=== PATIENT | female | born 1960 | race Caucasian/White ===

== ENCOUNTER 2017-02-26 15:49 | Emergency (ER) | payer OTHER ==
[~2017-02-26] VITALS: Ht 182.9 cm; Wt 117.2 kg
[~2017-02-26 15:49] MED LIST: ABL/5 PO; CLON1TAB3 PO; ERGO1CAP35 PO; PRAV20TA PO; VENL150C56 PO
[2017-02-26 15:59] VITALS: TEMP 36.7; Ht 182.9 cm; Wt 117.2 kg
--- NOTE | 2017-02-26 16:48 | EMERGENCY ROOM VISIT NOTE ---
History Report prepared by Gita: Linwood Leal Under the Supervision of: Prasanth FernándezO. First contact with patient: 16:35 Chief Complaint: FLANK PAIN Stated Complaint: LF SIDE PAIN History of Present Illness The patient is a 56 year old female who presents to the Emergency Room with complaints of worsening intermittent sharp left sided pain for the past couple of weeks. The patient states that the pain is worsened while sitting down. The patient additionally states that she is having some diarrhea today, though she states that she ate some sugar free fudge. She states that she does not have a history of kidney stones, and she states that she was recently riding a tractor. The patient denies any other back problems, and she denies any recent falls or injuries. She states that she drinks 2 gallons of water, and she also drinks iced tea and coffee. She states that her urine was dark this morning, though it was clearer later. The patient states that she takes clonazepam for her bipolar disorder, and she has recently been changing her medications. Pt denies headache, change in vision, fevers, chest pain, shortness of breath, nausea, vomiting, pain with urination, and melena. Source of History: patient Onset: a couple of weeks ago Position: other (left flank) Quality: sharp Timing: intermittent Modifying Factors (Worsening): other (sitting down) Associated Symptoms: + diarrhea Review of Systems See HPI for pertinent positives & negatives. A total of 10 systems reviewed and were otherwise negative. Past Medical & Surgical Medical Problems: (1) skin problems Surgical Problems: (1) Hx of appendectomy Family History Diabetes mellitus FHx: cancer Social History Smoking Status: Never Smoker Alcohol Use: none Drug Use: none Marital Status: Housing Status: lives with family Occupation Status: disabled Current/Historical Medications Scheduled Aripiprazole (Abilify), 15 MG PO DAILY Clonazepam (Klonopin), 0.5 MG PO BID Ergocalciferol (Vitamin D 00975 Unit), 50,000 UNIT PO WK Modafinil (Provigil), 200 MG PO DAILY Pravastatin (Pravachol ), 20 MG PO DAILY Venlafaxine Hcl (Effexor Extended Rel), 150 MG PO DAILY Allergies Coded Allergies: No Known Allergies (Verified , 08/17/12) Physical Exam Vital Signs Date Time Temp Pulse Resp B/P (MAP) Pulse Ox O2 Delivery O2 Flow Rate FiO2 02/26/17 19:17 80 20 144/86 97 02/26/17 17:56 80 20 144/86 97 Room Air 02/26/17 15:59 36.7 74 18 135/76 97 Room Air Physical Exam GENERAL: alert, well appearing, well nourished, no distress, non-toxic EYE EXAM: normal conjunctiva, PERRL and EOM's grossly intact OROPHARYNX: no exudate, no erythema, lips, buccal mucosa, and tongue normal and mucous membranes are moist NECK: supple, no nuchal rigidity, no adenopathy, non-tender LUNGS: Clear to auscultation. Normal chest wall mechanics HEART: no murmurs, S1 normal and S2 normal ABDOMEN: abdomen soft, non-tender, normo-active bowel sounds, no masses, no rebound or guarding. BACK: Back is symmetrical on inspection and there is no deformity, no midline tenderness, no CVA tenderness. SKIN: no rashes and no bruising UPPER EXTREMITIES: upper extremities are grossly normal. LOWER EXTREMITIES: No pitting edema. NEURO EXAM: Normal sensorium, cranial nerves II-XII grossly intact, normal speech, no gross weakness of arms, no gross weakness of legs. Gross sensation intact. Medical Decision & Procedures ER Provider Diagnostic Interpretation: Radiology results have been interpreted by the radiologist and reviewed by me. ABD/PELVIS NO IV OR ORAL CONT CT DOSE: 1621.93 mGy.cm HISTORY: Flank pain left flank pain TECHNIQUE: Multiaxial CT images of the abdomen and pelvis were performed without contrast. A dose lowering technique was utilized adhering to the principles of ALARA. COMPARISON STUDY: None. FINDINGS: The lung bases are clear. The unenhanced liver, spleen, gallbladder, pancreas, kidneys, and adrenal glands are within normal limits. No bowel wall thickening or obstruction. The pelvic organs are unremarkable. No suspicious lytic or blastic osseous lesions. IMPRESSION: No significant abnormality identified within the abdomen or pelvis. The above report was generated using voice recognition software. It may contain grammatical, syntax or spelling errors. Electronically signed by: Sheldon Ellsworth M.D. 02/26/2017 5:20 PM Dictated Date/Time: 02/26/2017 5:17 PM Laboratory Results 02/26/17 16:50 Red Blood Count 4.88, Mean Corpuscular Volume 88.5, Mean Corpuscular Hemoglobin 30.1, Mean Corpuscular Hemoglobin Concent 34.0, Mean Platelet Volume 9.6, Neutrophils (%) (Auto) 61.2, Lymphocytes (%) (Auto) 32.7, Monocytes (%) (Auto) 4.5, Eosinophils (%) (Auto) 1.1, Basophils (%) (Auto) 0.3, Neutrophils # (Auto) 5.44, Lymphocytes # (Auto) 2.91, Monocytes # (Auto) 0.40, Eosinophils # (Auto) 0.10, Basophils # (Auto) 0.03 02/26/17 16:50 Test 02/26/17 16:35 02/26/17 16:50 Urine Color YELLOW Urine Appearance CLEAR (CLEAR) Urine pH 6.5 (4.5-7.5) Urine Specific [place] 1.009 (1.000-1.030) Urine Protein NEG (NEG) Urine Glucose (UA) NEG (NEG) Urine Ketones NEG (NEG) Urine Occult Blood TRACE (NEG) Urine Nitrite NEG (NEG) Urine Bilirubin NEG (NEG) Urine Urobilinogen NEG (NEG) Urine Leukocyte Esterase NEG (NEG) Urine WBC (Auto) 1-5 /hpf (0-5) Urine RBC (Auto) 0-4 /hpf (0-4) Urine Hyaline Casts (Auto) 0 /lpf (0-5) Urine Epithelial Cells (Auto) >30 /lpf (0-5) Urine Bacteria (Auto) NEG (NEG) White Blood Count 8.90 K/uL (4.8-10.8) Red Blood Count 4.88 M/uL (4.2-5.4) Hemoglobin 14.7 g/dL (12.0-16.0) Hematocrit 43.2 % (37-47) Mean Corpuscular Volume 88.5 fL (80-100) Mean Corpuscular Hemoglobin 30.1 pg (25-34) Mean Corpuscular Hemoglobin Concent 34.0 g/dl (32-36) Platelet Count 240 K/uL (130-400) Mean Platelet Volume 9.6 fL (7.4-10.4) Neutrophils (%) (Auto) 61.2 % Lymphocytes (%) (Auto) 32.7 % Monocytes (%) (Auto) 4.5 % Eosinophils (%) (Auto) 1.1 % Basophils (%) (Auto) 0.3 % Neutrophils # (Auto) 5.44 K/uL (1.4-6.5) Lymphocytes # (Auto) 2.91 K/uL (1.2-3.4) Monocytes # (Auto) 0.40 K/uL (0.11-0.59) Eosinophils # (Auto) 0.10 K/uL (0-0.5) Basophils # (Auto) 0.03 K/uL (0-0.2) RDW Standard Deviation 48.2 fL (36.4-46.3) RDW Coefficient of Variation 14.9 % (11.5-14.5) Immature Granulocyte % (Auto) 0.2 % Immature Granulocyte # (Auto) 0.02 K/uL (0.00-0.02) Anion Gap 8.0 mmol/L (3-11) Est Creatinine Clear Calc Drug Dose 111.1 ml/min Estimated GFR () 93.4 Estimated GFR (Non- 80.6 BUN/Creatinine Ratio 12.4 (10-20) Calcium Level 9.0 mg/dl (8.5-10.1) Total Bilirubin 0.4 mg/dl (0.2-1) Aspartate Amino Transf (AST/SGOT) 48 U/L (15-37) Alanine Aminotransferase (ALT/SGPT) 61 U/L (12-78) Alkaline Phosphatase 116 U/L (45-117) Total Protein 7.3 gm/dl (6.4-8.2) Albumin 3.6 gm/dl (3.4-5.0) Globulin 3.7 gm/dl (2.5-4.0) Albumin/Globulin Ratio 1.0 (0.9-2) Laboratory results per my review. Medications Administered Medications (Trade) Dose Ordered Sig/Anjali Route Start Time Stop Time Status Last Admin Dose Admin Ketorolac Tromethamine (Toradol Inj) 30 mg NOW STAT IV 02/26/17 18:20 02/26/17 18:21 DC 02/26/17 18:37 30 MG ED Course 1635: The patient was evaluated in room A2. A complete history and physical exam was performed. 1804: Upon reevaluation, the patient is feeling better. I discussed the findings and the treatment plan with the patient. She verbalizes agreement and understanding. She will be discharged home if she is feeling better after her medications. 1819: Toradol Inj 30mg IV 1914: Pt states feeling much better. Medical Decision Differential diagnosis: Etiologies such as renal colic, appendicitis, diverticulitis, mesenteric ischemia, aortic pathology, infections, inflammatory bowel disease, PUD, biliary pathology, UTI, as well as others were entertained. Patient well-appearing here, despite slight hematuria no evidence of kidney stone, no evidence for UTI or pyelonephritis. No other acute GI or vascular pathology noted on CT. No recent significant trauma, pain to below lateral left low back. No other recent infections or changes in medications. Discussed with patient possible musculoskeletal etiology. Advised close follow- up with family doctor. Discussed use of [id number] Tylenol and ibuprofen as needed for pain. Discussed symptoms to watch and return for, she verbalized understanding was agreeable with plan. Medication Reconcilliation Current Medication List: was personally reviewed by me Blood Pressure Screening Patient's blood pressure: Elevated blood pressure Blood pressure disposition: Elevated BP felt to be situational Impression Primary Impression: Left flank pain Additional Impression: Hematuria Scribe Attestation The scribe's documentation has been prepared under my direction and personally reviewed by me in its entirety. I confirm that the note above accurately reflects all work, treatment, procedures, and medical decision making performed by me. Departure Information Dispostion Home / Self-Care Referrals Cristy Hawley PA-C (PCP) Forms HOME CARE DOCUMENTATION FORM, IMPORTANT VISIT INFORMATION Patient Instructions My [facility] Additional Instructions Please call and follow up with your family doctor. Please take your regular medications as prescribed. Please avoid any heavy lifting or strenuous activity until you are feeling better. Please have your family doctor recheck your urine as there was a small amount of blood but no other evidence of infection. If you have any worsening pain, difficulty urinating, fevers/chills , trouble breathing, notice a change in your bowel movements, or you have any other new or concerning symptoms, please return to the emergency room. You may use tylenol or motrin/ibuprofen for your back pain. Please do not take motrin/ibuprofen on an empty stomach. Problem Qualifiers Additional Impression: Hematuria Hematuria type: unspecified type Qualified Codes: R31.9 - Hematuria, unspecified
[2017-02-26 17:04] LABS: BASO % 0.3 %; BASO ABS # 0.03 K/uL (0-0.2); COMPLETE YES; EOS % 1.1 %; HEMATOCRIT 43.2 % (37-47); IG% 0.2 %; LYMPH % 32.7 %; LYMPH ABS # 2.91 K/uL (1.2-3.4); MEAN CELL VOLUME 88.5 fL (80-100); MEAN CORPUSCULAR HEMOGLOBIN 30.1 pg (25-34); MEAN PLATELET VOLUME 9.6 fL (7.4-10.4); MONO % 4.5 %; NEUT % 61.2 %; PLATELET COUNT 240 K/uL (130-400); RED BLOOD COUNT 4.88 M/uL (4.2-5.4)
[2017-02-26 17:20] LABS: URINE APPEARANCE CLEAR (CLEAR); URINE BILIRUBIN NEG (NEG); URINE COLOR YELLOW; URINE NITRITE NEG (NEG); URINE PH 6.5 (4.5-7.5); URINE SPECIFIC GRAVITY 1.009 (1.000-1.030); UROBILINOGEN NEG (NEG); ZZUR CULT IF INDIC CLEAN CATCH NO
[2017-02-26 17:21] LABS: BUN/CREATININE RATIO 12.4 (10-20); CREATININE 0.82 mg/dl (0.60-1.20); POTASSIUM 3.6 mmol/L (3.5-5.1)
--- NOTE | 2017-02-26 17:21 | DIAGNOSTIC IMAGING REPORT ---
ABD/PELVIS NO IV OR ORAL CONT CT DOSE: 1621.93 mGy.cm HISTORY: Flank pain left flank pain TECHNIQUE: Multiaxial CT images of the abdomen and pelvis were performed without contrast. A dose lowering technique was utilized adhering to the principles of ALARA. COMPARISON STUDY: None. FINDINGS: The lung bases are clear. The unenhanced liver, spleen, gallbladder, pancreas, kidneys, and adrenal glands are within normal limits. No bowel wall thickening or obstruction. The pelvic organs are unremarkable. No suspicious lytic or blastic osseous lesions. IMPRESSION: No significant abnormality identified within the abdomen or pelvis. The above report was generated using voice recognition software. It may contain grammatical, syntax or spelling errors. Electronically signed by: Sheldon Ellsworth M.D. 02/26/2017 5:20 PM Dictated Date/Time: 02/26/2017 5:17 PM
[2017-02-26 17:22] LABS: MANUAL MICROSCOPIC REQUIRED? NO; REVIEW REQ? YES
[2017-02-26] MEDS ORDERED: ERGO500037 PO (17:33)
[2017-02-26] MEDS ORDERED: MODA1TAB PO (17:33)
[2017-02-26] MEDS ORDERED: CLON0.5T3 PO (17:33)
[2017-02-26] MEDS ORDERED: ABL/15 PO (17:33)
[2017-02-26 17:34] LABS: URINE EPITHELIAL CELL AUTO >30 /lpf (0-5)
[2017-02-26] MEDS ORDERED: KETOROLAC TROMETHAMINE 30 MG/ML VIAL IV STA (18:20)
[2017-02-26 19:17] VITALS: BP 144/86; PULSE 80; O2SAT 97
== END 2017-02-26 19:17 | disposition home or self-care (01) ==
LOC: C.EDB 15:50 → C.EDA 19:17
DX: R10.9 Unspecified abdominal pain (principal); R31.9 Hematuria, unspecified; Z83.3 Family history of diabetes mellitus; Z80.9 Family history of malignant neoplasm, unspecified; Z79.899 Other long term (current) drug therapy